=== PATIENT | male | born 1990 | race Caucasian/White ===

== ENCOUNTER 2021-01-02 04:31 | Emergency (ER) | payer OTHER ==
[~2021-01-02 04:31] MED LIST: IBUPROFEN800 MG PO; KEFLEX CAP 500500 MG PO; LODINE CAP 300300 MG PO
[2021-01-02 05:17] LABS: HEMOGLOBIN 15.6 gm/dl (14.0-17.5); RED BLOOD COUNT 4.85 M/UL (4.20-5.50); WHITE BLOOD COUNT 13.1 K/UL (4.5-11.0)
[2021-01-02 06:08] LABS: BUN/CREATININE RATIO 11 (0-10)
[2021-01-02] MEDS ORDERED: PERCOCET 5-3251 EACH PO (07:40)
== END 2021-01-02 08:11 | disposition home or self-care (01) ==
LOC: ER1 04:31
PROVIDERS: Family Medicine
DX: S22.42XA Multiple fractures of ribs, left side, initial encounter for closed fracture (principal); S00.81XA Abrasion of other part of head, initial encounter; E11.65 Type 2 diabetes mellitus with hyperglycemia; F15.10 Other stimulant abuse, uncomplicated; I49.5 Sick sinus syndrome; E11.9 Type 2 diabetes mellitus without complications; R10.11 Right upper quadrant pain; R10.12 Left upper quadrant pain; R10.30 Lower abdominal pain, unspecified; M54.9 Dorsalgia, unspecified; Z91.14 Patient's other noncompliance with medication regimen; Z23 Encounter for immunization; Z79.84 Long term (current) use of oral hypoglycemic drugs; V49.40XA Driver injured in collision with unspecified motor vehicles in traffic accident, initial encounter; Y92.410 Unspecified street and highway as the place of occurrence of the external cause
CPT/HCPCS: 70450; 71045; 71260; 72125; 72128; 72131; 80053; 80307; 81001; 82550; 82553; 83605; 83690; 83874; 84484; 85025; 85610; 85730; 86850; 86900; 86901; 90471; 90715; 93005; 96374; 99284; G0480; J2270; J7030; Q9967

== ENCOUNTER 2021-01-03 02:44 | Emergency (ER) | payer OTHER ==
[~2021-01-03 02:44] MED LIST changes: +PERCOCET 5-3251 EACH PO
[2021-01-03 03:36] LABS: RED BLOOD COUNT 4.69 M/UL (4.20-5.50)
[2021-01-03 03:51] LABS: WHITE BLOOD COUNT 16.6 K/UL (4.5-11.0)
[2021-01-03 04:18] LABS: BUN/CREATININE RATIO 11 (0-10)
== END 2021-01-03 07:20 | disposition left against medical advice (07) ==
LOC: ER1 02:44
PROVIDERS: Emergency Medicine
DX: T40.601A Poisoning by unspecified narcotics, accidental (unintentional), initial encounter (principal)
CPT/HCPCS: 71045; 80053; 80307; 82009; 82550; 82553; 82803; 82962; 83874; 84484; 85025; 93005; 96374; 96375; 99284; G0480; J2405

== ENCOUNTER 2021-04-06 23:06 | Emergency (ER) | payer OTHER ==
[2021-04-06 23:44] LABS: HEMOGLOBIN 14.9 gm/dl (14.0-17.5); RED BLOOD COUNT 4.58 M/UL (4.20-5.50); WHITE BLOOD COUNT 13.8 K/UL (4.5-11.0)
[2021-04-07 00:14] LABS: BUN/CREATININE RATIO 24 (0-10)
== END 2021-04-07 02:30 | disposition home or self-care (01) ==
LOC: ER1 23:06
PROVIDERS: Physician Assistant
DX: F19.10 Other psychoactive substance abuse, uncomplicated (principal)
CPT/HCPCS: 80053; 80307; 81001; 82962; 85025; 93005; 96374; 99284; J7030